=== PATIENT | female | born 1990 | race Two or more races ===

== ENCOUNTER 2016-11-28 18:00 | Emergency (ER) | payer OTHER ==
[2016-11-28 19:08] LABS: INFLUENZA A NEG (NEG); INFLUENZA B POS (NEG)
== END 2016-11-28 19:35 | disposition home or self-care (01) ==
LOC: CFTX 18:00
PROVIDERS: Physician Assistant
DX: O99.512 Diseases of the respiratory system complicating pregnancy, second trimester (principal); J02.0 Streptococcal pharyngitis
CPT/HCPCS: 36415; 87804; 87880; 96372; 99284; J0561

== ENCOUNTER 2017-05-05 22:27 | Emergency (ER) | payer OTHER ==
--- NOTE | ~2017-05-05 | CT2 ---
[facility] A Service of [facility] & [facility] RADIOLOGY TEXT RESULTS PATIENT: BRIANDA MARTINEZ LOCATION: CFTX : [birth year] UNIT #: [id number] AGE: [address]: Sarah Curiel APRN SEX: F ORDER DR: [id number] [facility]. [place], [place] [address] [id number] MR#: [id number] Acc #: [id number] NAME: BRIANDA MARTINEZ : 1990 SEX: F STUDY DATE/TIME: 05/06/2017 0:51 UNIT: CFTX ROOM: STUDY DESCRIPTION: CT Abd and Pelv W Cont Attending Physician: Sarah Curiel A.P.R.N. Ordering Physician: Sarah Curiel A.P.R.N. Primary Care Physician: Primary Care Physician No MEDICAL IMAGING REPORT This report is preliminary unless electronic signature is present EXAM CT abdomen and pelvis with contrast, 05/06/2017 HISTORY 26-year-old female in the ED complaining of 2-hour history of generalized abdomen pain, back pain and nausea. TECHNIQUE CT examination of the abdomen and pelvis was performed with IV contrast. GI contrast was not ordered, limiting evaluation of the GI tract. This CT examination was performed with one or more of the following radiation dose reduction techniques: automatic exposure control, adjustment of mA and/or kV according to patient size, and iterative reconstruction. FINDINGS ABDOMEN: Probable small stone material within the dependent portion of the gallbladder. The gallbladder is mildly distended and there may be some mild gallbladder wall thickening. Mild intrahepatic and extrahepatic bile duct dilatation to the level of the ampulla. Common bile duct measures about 9 mm. Liver, pancreas and spleen are normal in appearance. Small benign right upper pole renal cyst. Both kidneys otherwise negative. Small bowel and colon are normal in caliber and appearance, as imaged. The appendix is normal. PELVIS: 4 cm exophytic mass arising from the upper left uterine fundus compatible with likely leiomyoma. Both ovaries appear normal. Urinary bladder and rectum are negative. No inguinal hernia. Limited lung base images show no active disease in the lower chest. STS. [facility] A Service of [facility] & [facility] RADIOLOGY TEXT RESULTS PATIENT: BRIANDA MARTINEZ LOCATION: [facility] : [birth year] UNIT #: [id number] AGE: [address]: Sarah Curiel APRN SEX: F ORDER DR: IMPRESSION 1. Probable cholelithiasis. Suspected mild gallbladder wall thickening. Mild intrahepatic and extrahepatic bile duct dilatation to the level of the ampulla with the common bile duct measuring 9 mm. 2. 4 cm exophytic leiomyoma arising from the left upper uterine fundus. Both ovaries are normal. 3. Remainder of the exam is negative. Normal appendix. Dictated by... Luis Alberto Mario M.D. THIS IS AN ELECTRONICALLY VERIFIED REPORT Luis Alberto Mario M.D. at 05/06/2017 9:48 PM FREDERIC/amelia TD: 05/06/2017 07:07 JOB #: [id number] MEDICAL IMAGING REPORT Page 1 of 1 COPY
[2017-05-05 23:24] LABS: URINE SOURCE CLEAN CATCH
[2017-05-05 23:33] LABS: URINE APPEARANCE CLOUDY; URINE BILIRUBIN NEG (NEG); URINE BLOOD TRACE (NEG); URINE COLOR YELLOW; URINE GLUCOSE NEG (NEG); URINE KETONE NEG (NEG); URINE LEUKOCYTE ESTERASE 3+ (NEG); URINE NITRATE NEG (NEG); URINE PROTEIN NEG (NEG); URINE SPECIFIC GRAVITY 1.018 (1.003-1.035)
[2017-05-05 23:36] LABS: CULTURE INDICATED? YES; URINE BACTERIA AUWI 1+ (NEGATIVE); URINE SQUAMOUS EPITHELIAL CELL OCC /[HPF]; UWBCS1 AUWI 50-100 (0-5)
[2017-05-05 23:50] LABS: BASOPHIL% 0.3 % (0-2.5); DIFF IND NO; EOSINOPHIL# 0.2 X10e3 (0-0.7); EOSINOPHIL% 2.4 % (0.0-7.0); HEMATOCRIT 40.2 % (35.0-45.0); HEMOGLOBIN 13.2 gm/dL (12.0-16.0); LYMPHOCYTE# 1.6 X10e3 (1.0-3.5); LYMPHOCYTE% 16.6 % (17.0-45.0); MEAN CORPUSCULAR HEMOGLOBIN 26.4 PG (28-34); MEAN CORPUSCULAR HGB CONC 32.9 g/dL (30-36); MEAN PLATELET VOLUME 9.1 FL (6.5-11.5); MONOCYTE# 0.9 X10e3 (0-1.0); MONOCYTE% 9.6 % (3.0-12.0); NEUTROPHIL# 6.7 X10e3 (1.5-7.1); NEUTROPHIL% 71.1 % (40-75); PLATELET COUNT 197 X10e3 (140-420); RED BLOOD COUNT 5.02 X10e (3.90-5.30); RED CELL DISTRIBUTION WIDTH 14.4 % (11.0-15.5); WHITE BLOOD COUNT 9.4 X10e3 (4.0-10.5)
[2017-05-06 00:16] LABS: ALBUMIN SERUM 4.4 g/dL (3.5-5.0); BILIRUBIN,TOTAL 1.4 mg/dL (0.2-2.0); BUN/CREATININE RATIO 21.66; CALCIUM SERUM 9.3 mg/dL (8.4-10.2); CREATININE SERUM 0.6 mg/dL (0.6-1.4); GLOM FILT RATE Estimated 125.8 mL/min (>60); POTASSIUM 4.1 mmol/L (3.5-5.1); PROTEIN TOTAL SERUM 8.4 g/dL (6.0-8.3)
== END 2017-05-06 02:00 | disposition home or self-care (01) ==
LOC: CFTX 22:27 → CED 22:27 → CFTX 22:49
PROVIDERS: Nurse Practitioner
DX: K80.20 Calculus of gallbladder without cholecystitis without obstruction (principal); N39.0 Urinary tract infection, site not specified; R94.5 Abnormal results of liver function studies
CPT/HCPCS: 36415; 74177; 80053; 81003; 83690; 84703; 85025; 87086; 96361; 96374; 96375; 99284; J1885; J2405; Q9967